=== PATIENT | male | born 1995 | race African-American/Black ===

== ENCOUNTER 2021-08-15 07:12 | Emergency (ER) | payer SELFPAY ==
[~2021-08-15] VITALS: Ht 170.2 cm; Wt 91.0 kg
[2021-08-15] MEDS ORDERED: TETRACAINE 0.5% OPHTH DROPS 4ML LEFTEYE ONE (08:00)
[2021-08-15] MEDS ORDERED: FLUORESCEIN SODIUM 1MG/STRIP LEFTEYE ONE (08:00)
[2021-08-15] MEDS ORDERED: SULF1TAB48 PO (09:20)
[2021-08-15 09:37] VITALS: BP 126/78
== END 2021-08-15 09:39 | disposition home or self-care (01) ==
LOC: ER 07:12
DX: L03.213 Periorbital cellulitis (principal)
CPT/HCPCS: 99283